=== PATIENT | female | born 1985 | race Hispanic/Latino ===

== ENCOUNTER 2017-07-10 09:38 | Emergency (ER) | payer MEDICAID, OTHER ==
[2017-07-10] MEDS ORDERED: DEXAMETHASONE SOD PHOSPHATE 10MG/ML 1ML VIAL ONE (10:08)
[2017-07-10] MEDS ORDERED: LIDOCAINE HCL-MPF 1% 2ML VIAL ONE (10:09)
[2017-07-10] MEDS ORDERED: CEFTRIAXONE SODIUM 1 GM ONE (10:09)
[2017-07-10] MEDS ORDERED: IBUPROFEN 400 MG TABLET ONE (10:09)
== END 2017-07-10 10:40 | disposition home or self-care (01) ==
LOC: EDH 09:38
DX: J03.90 Acute tonsillitis, unspecified (principal); A49.1 Streptococcal infection, unspecified site; R50.81 Fever presenting with conditions classified elsewhere
CPT/HCPCS: 81025; 96372 ×2; 99284; J0696; J1100; J3490

== ENCOUNTER 2017-08-21 22:15 | Emergency (ER) | payer SELFPAY ==
[2017-08-21] MEDS ORDERED: LIDOCAINE HCL 2% VISCOUS 15 ML UDCUP ONE (23:04)
[2017-08-21] MEDS ORDERED: MAG HYDROX/AL HYDROX/SIMETH ES 30 ML SUSP UDCUP ONE (23:04)
[2017-08-21 23:17] LABS: BASOPHILS % (AUTO) 1.1 % (0.0-5.0); LYMPHOCYTES % (AUTO) 27.2 % (21.0-51.0); MEAN CORPUSCULAR HEMOGLOBIN 25.6 pg (27.0-33.0); MEAN CORPUSCULAR HGB CONC 32.8 g/dL (32.0-36.0); MONOCYTES % (AUTO) 5.3 % (3.0-13.0); NEUTROPHILS % (AUTO) 65.4 % (40.0-77.0); PLATELET COUNT (AUTO) 233 K/uL (130-400); RED CELL DISTRIBUTION WIDTH 14.6 % (11.0-15.5); WHITE BLOOD COUNT (AUTO) 8.1 K/uL (4.8-10.8)
[2017-08-21 23:26] LABS: CREATININE 0.7 mg/dL (0.5-1.5); POTASSIUM 4.1 mmol/L (3.5-5.1)
[2017-08-21 23:30] LABS: ALBUMIN 3.9 g/dL (3.5-5.0); BILIRUBIN,TOTAL 0.2 mg/dL (0.2-1.0)
[2017-08-21 23:36] LABS: APPEARANCE,URINE Clear (CLEAR); BILIRUBIN,URINE Negative (NEGATIVE); COLOR,URINE Yellow (YELLOW); GLUCOSE, URINE (UA) Negative (NEGATIVE); KETONES,URINE Negative (NEGATIVE); LEUKOCYTE ESTERASE ,URINE Negative (NEGATIVE); NITRATE,URINE Negative (NEGATIVE); OCCULT BLOOD,URINE Negative (NEGATIVE); PH,URINE 6.5 (5.0-8.0); PROTEIN,URINE Negative (NEGATIVE)
[2017-08-21 23:37] LABS: HCG,QUAL RESULT NEGATIVE (NEGATIVE)
== END 2017-08-21 23:59 | disposition home or self-care (01) ==
LOC: EDH 22:15
DX: R10.11 Right upper quadrant pain (principal); Z90.49 Acquired absence of other specified parts of digestive tract; Z98.890 Other specified postprocedural states
CPT/HCPCS: 36415; 80053; 81003; 81025; 85025

== ENCOUNTER 2018-04-18 10:38 | Emergency (ER) | payer SELFPAY ==
[2018-04-18 11:36] LABS: BILIRUBIN,URINE Negative (NEGATIVE); COLOR,URINE Dark Yellow (YELLOW); GLUCOSE, URINE (UA) Negative (NEGATIVE); KETONES,URINE Negative (NEGATIVE); LEUKOCYTE ESTERASE ,URINE Trace (NEGATIVE); NITRATE,URINE Negative (NEGATIVE); OCCULT BLOOD,URINE Negative (NEGATIVE); PROTEIN,URINE Negative (NEGATIVE)
[2018-04-18 11:37] LABS: BASOPHILS % (AUTO) 0.8 % (0.0-5.0); EOSINOPHILS % (AUTO) 1.7 % (0.0-8.0); HEMATOCRIT 40.5 % (36-48); LYMPHOCYTES % (AUTO) 38.3 % (21.0-51.0); MEAN CORPUSCULAR HEMOGLOBIN 25.3 pg (27.0-33.0); MEAN CORPUSCULAR HGB CONC 32.4 g/dL (32.0-36.0); MEAN CORPUSCULAR VOLUME 78.2 fL (79-99); MONOCYTES % (AUTO) 6.1 % (3.0-13.0); NEUTROPHILS % (AUTO) 53.1 % (40.0-77.0); NUCLEATED RED BLOOD CELLS 0.1 % (0.0-0.19); PLATELET COUNT (AUTO) 169 K/uL (130-400); RED BLOOD CELL COUNT(AUTO) 5.18 MIL/uL (4.00-5.50); RED CELL DISTRIBUTION WIDTH 14.1 % (11.0-15.5)
[2018-04-18 11:40] LABS: APPEARANCE,URINE SLIGHTLY CLOUDY (CLEAR)
[2018-04-18 11:42] LABS: CREATININE 0.7 mg/dL (0.5-1.5)
[2018-04-18 11:50] LABS: RBC,URINE None Seen /HPF (0-1)
[2018-04-18 11:51] LABS: BACTERIA,URINE Many /HPF (None Seen); MUCUS,URINE Moderate LPF (None Seen); SQUAMOUS EPITHELIAL CELL,UR 30-50 /HPF (0-2)
[2018-04-18 11:53] LABS: BILIRUBIN,TOTAL 0.3 mg/dL (0.2-1.0)
== END 2018-04-18 12:40 | disposition home or self-care (01) ==
LOC: EDH 10:38
DX: R10.11 Right upper quadrant pain (principal); Z90.49 Acquired absence of other specified parts of digestive tract; Z98.890 Other specified postprocedural states; Z87.442 Personal history of urinary calculi
CPT/HCPCS: 36415; 80053; 81001; 83690; 84702; 85025

== ENCOUNTER 2018-04-28 10:19 | Emergency (ER) | payer SELFPAY ==
[2018-04-28] MEDS ORDERED: DEXAMETHASONE SOD PHOSPHATE 10MG/ML 1ML VIAL ONE (10:59)
[2018-04-28] MEDS ORDERED: SODIUM CHLORIDE 0.9% 1000ML 1,000 ML IV ONE (11:00)
[2018-04-28] MEDS ORDERED: HYDROCODONE/ACETAMINOPHEN 7.5/325 MG 15 ML UDCUP ONE (11:00)
[2018-04-28] MEDS ORDERED: KETOROLAC TROMETHAMINE 30MG/ML ONE (11:00)
[2018-04-28] MEDS ORDERED: CEFTRIAXONE SODIUM 1 GM ONE (11:07)
[2018-04-28] MEDS ORDERED: SODIUM CHLORIDE 0.9% 50 ML IV ONE (11:07)
== END 2018-04-28 12:08 | disposition home or self-care (01) ==
LOC: EDH 10:19
DX: J02.0 Streptococcal pharyngitis (principal); Z90.49 Acquired absence of other specified parts of digestive tract; Z87.442 Personal history of urinary calculi
CPT/HCPCS: 81025; 96374; 96375; 99283; J0696; J1100; J1885; J7030

== ENCOUNTER 2019-10-12 15:44 | Emergency (ER) | payer OTHER, SELFPAY | END 2019-10-12 17:00 | disposition home or self-care (01) | LOC: EDH 15:44 | DX: N61.0 Mastitis without abscess (principal); Z90.49 Acquired absence of other specified parts of digestive tract | CPT/HCPCS: 81025 ==